=== PATIENT | male | born 1955 | race Caucasian/White ===

== ENCOUNTER 2017-10-26 12:18 | Emergency (ER) | payer OTHER ==
[~2017-10-26] VITALS: Ht 177.8 cm; Wt 109.8 kg
[2017-10-26 12:18] VITALS: BP 195/96
[~2017-10-26 12:18] MED LIST: AMLODIPINE BESYL5 MG PO; DOXY 100100 MG IV; LAMISIL250 MG PO; LEVAQUIN750 M1 PO; LISINOPRIL-HYDR1 TA3 PO; PERCOCET 325 MG1 TA1 PO; PERCOCET 325 MG1 TA2 PO; VOLTAREN11 TP
[2017-10-26] MEDS ORDERED: KEFLEX500 M1 PO (15:04)
[2017-10-26] MEDS ORDERED: NORCO 10-325 T1 EACH PO (15:08)
== END 2017-10-26 15:14 | disposition home or self-care (01) ==
LOC: ED 12:18
DX: S90.211A Contusion of right great toe with damage to nail, initial encounter (principal); I10 Essential (primary) hypertension; Z79.2 Long term (current) use of antibiotics; Z79.899 Other long term (current) drug therapy; W22.8XXA Striking against or struck by other objects, initial encounter; Y93.89 Activity, other specified; Y92.89 Other specified places as the place of occurrence of the external cause; Y99.8 Other external cause status

== ENCOUNTER → 2019-03-14 | Outpatient (CLI) | payer SELFPAY ==
[~2019-03-14] MED LIST changes: +KEFLEX500 M1 PO; +NORCO 10-325 T1 EACH PO
[2019-03-14 09:00] LABS: URINE AMPHETAMINES < 1000 (1000ng/ml); URINE BARBITURATES < 200 (200ng/ml); URINE BENZODIAZEPINES < 200 (200ng/ml); URINE CANNABINOIDS (THC) < 50 (50ng/ml); URINE COCAINE < 300 (300ng/ml); URINE METHADONE < 300 (300ng/ml); URINE OPIATES < 300 (300ng/ml)
[2019-03-14 09:06] LABS: URINE PHENCYCLIDINE < 25 (25ng/ml)
== END | disposition home or self-care (01) ==
LOC: LAB 08:30
PROVIDERS: Internal Medicine
DX: M14.84 Arthropathies in other specified diseases classified elsewhere, hand (principal); G89.4 Chronic pain syndrome

== ENCOUNTER 2021-01-09 08:32 | Inpatient (IN) | payer SELFPAY ==
[~2021-01-09] VITALS: Ht 177.8 cm; Wt 110.8 kg
[2021-01-09 08:47] VITALS: BP 115/82
[2021-01-09 09:32] LABS: HEMATOCRIT 48.9 % (42.0-52.0); MEAN CELL VOLUME 87.8 fl (80.0-94.0); MEAN CORPUSCULAR HGB 30.3 pg (27.0-31.0); MEAN CORPUSCULAR HGB CONC 34.6 g/dl (33.0-37.0); MEAN PLATELET VOLUME 11.5 fl (9.6-12.3); PLATELET COUNT AUTOMATED 167 10*3/uL (130-400); RED BLOOD COUNT 5.57 10*6/uL (4.50-5.90); RED CELL DISTRI WIDTH 11.9 % (0-14.5)
[2021-01-09 09:45] LABS: ALKALINE PHOSPHATASE 145 U/L (45-117); BUN 13 mg/dl (7-24); CHLORIDE 105 mmol/L (98-107); CREATININE 0.86 mg/dL (0.70-1.30); POTASSIUM 4.2 mmol/L (3.5-5.1); SGOT/AST 89 IU/L (3-35); SGPT/ALT 115 U/L (12-78); SODIUM 139 mmol/L (136-145); TOTAL PROTEIN 7.4 gm/dL (6.4-8.2)
[2021-01-09 09:50] LABS: ATYPICAL LYMPHS 2 % (0-0); PLASMA CELL 2 % (0-0); PLATELET SUFFICIENCY NORMAL (NORMAL); TOTAL CELLS COUNTED 100 #CELLS
[2021-01-09 09:52] LABS: TROPONIN I < 0.015 ng/ml (<0.045)
[2021-01-09 12:34] VITALS: BP 115/78
[2021-01-09 15:30] VITALS: BP 135/65
[2021-01-09 15:35] VITALS: BP 135/65
[2021-01-09 20:00] VITALS: BP 104/52
[2021-01-10] VITALS: BP 118/79
[2021-01-10 06:32] LABS: INTERNATIONAL NORM RATIO 1.1 (2.0-3.5)
[2021-01-10 06:42] LABS: ALBUMIN 2.6 gm/dl (3.1-4.5); BUN 18 mg/dl (7-24); CHLORIDE 108 mmol/L (98-107); LDH 322 U/L (87-241); SGOT/AST 45 IU/L (3-35); SGPT/ALT 84 U/L (12-78); SODIUM 139 mmol/L (136-145); TOTAL PROTEIN 6.6 gm/dL (6.4-8.2)
[2021-01-10 06:46] LABS: MEAN CELL VOLUME 89.7 fl (80.0-94.0); MEAN CORPUSCULAR HGB 30.1 pg (27.0-31.0); MEAN CORPUSCULAR HGB CONC 33.6 g/dl (33.0-37.0); MEAN PLATELET VOLUME 11.2 fl (9.6-12.3); PLATELET COUNT AUTOMATED 147 10*3/uL (130-400); RED BLOOD COUNT 4.68 10*6/uL (4.50-5.90); RED CELL DISTRI WIDTH 12.1 % (0-14.5); WHITE BLOOD COUNT 4.1 10*3/uL (4.8-10.8)
[2021-01-10 06:49] LABS: ALKALINE PHOSPHATASE 117 U/L (45-117); CHOLESTEROL 133 mg/dL (<200); LDL CHOLESTEROL 89 mg/dL (9-159); THYROID STIM HORMONE (HS) 0.495 uIU/ml (0.358-4.75); TRIGLYCERIDES 79 mg/dl (<150)
[2021-01-10 07:12] LABS: FERRITIN 584.3 ng/mL (22.0-322.0)
[2021-01-10 07:48] LABS: ATYPICAL LYMPHS 2 % (0-0); BURR CELLS FEW; PLATELET SUFFICIENCY NORMAL (NORMAL); TOTAL CELLS COUNTED 100 #CELLS
[2021-01-10 08:00] VITALS: BP 135/84
[2021-01-10 12:00] VITALS: BP 105/50
[2021-01-10 16:00] VITALS: BP 138/87
[2021-01-10 20:00] VITALS: BP 119/64
[2021-01-11] VITALS: BP 123/62
[2021-01-11 06:51] LABS: ALBUMIN 2.7 gm/dl (3.1-4.5); ALKALINE PHOSPHATASE 136 U/L (45-117); BUN 18 mg/dl (7-24); CHLORIDE 110 mmol/L (98-107); CREATININE 0.68 mg/dL (0.70-1.30); SGOT/AST 44 IU/L (3-35); SGPT/ALT 89 U/L (12-78); SODIUM 138 mmol/L (136-145); TOTAL PROTEIN 6.3 gm/dL (6.4-8.2)
[2021-01-11 08:00] VITALS: BP 131/85
[2021-01-11] MEDS ORDERED: DECADRON6 M1 PO (11:25)
== END 2021-01-11 12:23 | disposition home or self-care (01) | DRG 177 ==
LOC: ED 08:32 → 4E 11:06 → EDHOLD 11:06 → 4E 14:47
PROVIDERS: Emergency Medicine; Internal Medicine; ADMIT Family Medicine; ATTEND Family Medicine
DX: U07.1 COVID-19 (principal); J12.82 Pneumonia due to coronavirus disease 2019; E44.0 Moderate protein-calorie malnutrition; R73.9 Hyperglycemia, unspecified; E66.9 Obesity, unspecified; I10 Essential (primary) hypertension; E83.41 Hypermagnesemia; E87.8 Other disorders of electrolyte and fluid balance, not elsewhere classified; Z68.34 Body mass index [BMI] 34.0-34.9, adult

== ENCOUNTER 2021-07-17 14:32 | Emergency (ER) | payer MEDICAID ==
[~2021-07-17] VITALS: Ht 177.8 cm; Wt 120.2 kg
[~2021-07-17 14:32] MED LIST changes: +DECADRON6 M1 PO
[2021-07-17 14:42] VITALS: BP 125/81
[2021-07-17 15:19] LABS: BASO % 0.3 % (0.0-1.0); EOS % 0.1 % (1.0-4.0); HEMATOCRIT 43.1 % (42.0-52.0); LYMPH # 0.5 10*3/uL (1.3-4.4); MEAN CORPUSCULAR HGB 30.1 pg (27.0-31.0); MEAN PLATELET VOLUME 11.9 fl (9.6-12.3); MONO # 0.5 10*3/uL (0.1-1.0); MONO % 6.4 % (3.0-9.0); NEUT # 6.1 10*3/uL (2.3-7.9); NEUT % 85.5 % (47.0-73.0); PLATELET COUNT AUTOMATED 116 10*3/uL (130-400); RED BLOOD COUNT 5.01 10*6/uL (4.50-5.90); RED CELL DISTRI WIDTH 12.9 % (0-14.5); WHITE BLOOD COUNT 7.2 10*3/uL (4.8-10.8)
[2021-07-17 15:32] LABS: ALKALINE PHOSPHATASE 100 U/L (45-117); BUN 19 mg/dl (7-24); CHLORIDE 100 mmol/L (98-107); CREATININE 1.04 mg/dL (0.70-1.30); SGOT/AST 16 IU/L (3-35); SGPT/ALT 30 U/L (12-78); SODIUM 131 mmol/L (136-145); TOTAL PROTEIN 6.5 gm/dL (6.4-8.2)
[2021-07-17] MEDS ORDERED: DOXYCYCLINE HY100 M3 PO (17:39)
[2021-07-17] MEDS ORDERED: PREDNISONE10 MG PO (17:39)
== END 2021-07-17 17:52 | disposition home or self-care (01) ==
LOC: ED 14:32
PROVIDERS: Internal Medicine
DX: J18.9 Pneumonia, unspecified organism (principal); Z20.822 Contact with and (suspected) exposure to COVID-19; Z79.899 Other long term (current) drug therapy; Z90.89 Acquired absence of other organs; Z98.890 Other specified postprocedural states

== ENCOUNTER 2022-01-13 12:40 | Emergency (ER) | payer MEDICAID ==
[~2022-01-13] VITALS: Ht 180.3 cm; Wt 99.8 kg
[~2022-01-13 12:40] MED LIST changes: +DOXYCYCLINE HY100 M3 PO; +PREDNISONE10 MG PO
[2022-01-13 12:48] VITALS: BP 156/95
[2022-01-13 13:58] LABS: BASO % 0.7 % (0.0-1.0); EOS # 0.1 10*3/uL (0.0-0.4); EOS % 2.7 % (1.0-4.0); LYMPH # 0.7 10*3/uL (1.3-4.4); LYMPH % 22.9 % (27.0-41.0); MEAN CELL VOLUME 88.7 fl (80.0-94.0); MEAN CORPUSCULAR HGB 29.9 pg (27.0-31.0); MEAN CORPUSCULAR HGB CONC 33.7 g/dl (33.0-37.0); MEAN PLATELET VOLUME 10.5 fl (9.6-12.3); MONO # 0.2 10*3/uL (0.1-1.0); MONO % 6.8 % (3.0-9.0); NEUT % 66.6 % (47.0-73.0); PLATELET COUNT AUTOMATED 118 10*3/uL (130-400); RED BLOOD COUNT 4.62 10*6/uL (4.50-5.90); RED CELL DISTRI WIDTH 12.5 % (0-14.5); WHITE BLOOD COUNT 2.9 10*3/uL (4.8-10.8)
[2022-01-13 14:12] LABS: ALKALINE PHOSPHATASE 100 U/L (45-117); BUN 10 mg/dl (7-24); CHLORIDE 104 mmol/L (98-107); CREATININE 0.67 mg/dL (0.70-1.30); POTASSIUM 3.6 mmol/L (3.5-5.1); SGPT/ALT 72 U/L (12-78); SODIUM 138 mmol/L (136-145); TOTAL PROTEIN 6.6 gm/dL (6.4-8.2)
[2022-01-13] MEDS ORDERED: SEPTDS PO (14:15)
== END 2022-01-13 14:32 | disposition home or self-care (01) ==
LOC: ED 12:40
PROVIDERS: Family Medicine
DX: L03.116 Cellulitis of left lower limb (principal); Z79.899 Other long term (current) drug therapy; Z90.89 Acquired absence of other organs

== ENCOUNTER 2022-05-17 10:10 | Emergency (ER) | payer OTHER, MEDICAID ==
[~2022-05-17] VITALS: Ht 175.2 cm; Wt 99.8 kg
[~2022-05-17 10:10] MED LIST changes: +SEPTDS PO
[2022-05-17 11:16] VITALS: BP 150/86
[2022-05-17 12:31] LABS: BASO % 0.2 % (0.0-1.0); EOS % 0.6 % (1.0-4.0); HEMATOCRIT 48.7 % (42.0-52.0); LYMPH # 0.8 10*3/uL (1.3-4.4); LYMPH % 15.2 % (27.0-41.0); MEAN CELL VOLUME 89.2 fl (80.0-94.0); MEAN CORPUSCULAR HGB 29.9 pg (27.0-31.0); MEAN CORPUSCULAR HGB CONC 33.5 g/dl (33.0-37.0); MEAN PLATELET VOLUME 11.2 fl (9.6-12.3); MONO # 0.3 10*3/uL (0.1-1.0); MONO % 6.7 % (3.0-9.0); NEUT # 3.8 10*3/uL (2.3-7.9); NEUT % 77.1 % (47.0-73.0); PLATELET COUNT AUTOMATED 103 10*3/uL (130-400); RED BLOOD COUNT 5.46 10*6/uL (4.50-5.90); RED CELL DISTRI WIDTH 12.7 % (0-14.5); WHITE BLOOD COUNT 4.9 10*3/uL (4.8-10.8)
[2022-05-17 12:46] LABS: ALKALINE PHOSPHATASE 108 U/L (46-116); BUN 13 mg/dl (9-23); CHLORIDE 102 mmol/L (98-107); POTASSIUM 4.2 mmol/L (3.4-5.1); SGPT/ALT 38 U/L (10-49); TOTAL PROTEIN 7.3 gm/dL (6.0-8.0); URIC ACID 3.3 mg/dL (3.7-9.2)
[2022-05-17] MEDS ORDERED: NAPROSYN500 MG PO (12:51)
== END 2022-05-17 13:11 | disposition home or self-care (01) ==
LOC: ED 10:10
PROVIDERS: Nurse Practitioner Family
DX: M76.61 Achilles tendinitis, right leg (principal); I10 Essential (primary) hypertension; Z90.89 Acquired absence of other organs; Z98.890 Other specified postprocedural states

== ENCOUNTER 2023-03-04 09:23 | Emergency (ER) | payer MEDICARE, MEDICAID ==
[~2023-03-04] VITALS: Wt 108.9 kg
[~2023-03-04 09:23] MED LIST changes: +NAPROSYN500 MG PO
[2023-03-04 09:29] VITALS: BP 127/94
[2023-03-04] MEDS ORDERED: VIBRA-TAB100 MG PO (09:49)
[2023-03-04] MEDS ORDERED: PREDNISONE50 MG PO (09:49)
== END 2023-03-04 10:15 | disposition home or self-care (01) ==
LOC: ED 09:23
DX: J34.0 Abscess, furuncle and carbuncle of nose (principal); T36.8X5A Adverse effect of other systemic antibiotics, initial encounter; T36.1X5A Adverse effect of cephalosporins and other beta-lactam antibiotics, initial encounter; I10 Essential (primary) hypertension; Z88.1 Allergy status to other antibiotic agents; Z88.2 Allergy status to sulfonamides; Z88.8 Allergy status to other drugs, medicaments and biological substances; Z90.89 Acquired absence of other organs; Z98.890 Other specified postprocedural states; Y92.89 Other specified places as the place of occurrence of the external cause